=== PATIENT | male | born 1955 | race African-American/Black ===

== ENCOUNTER 2017-08-15 01:04 | Emergency (ER) | payer OTHER, BC ==
[~2017-08-15] VITALS: Ht 167.6 cm; Wt 77.1 kg
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
[2017-08-15 01:40] VITALS: BP 141/88
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
== END 2017-08-15 02:50 | disposition home or self-care (01) ==
LOC: ER 01:04
DX: S60.221A Contusion of right hand, initial encounter (principal); M54.2 Cervicalgia; V46.4XXA Person boarding or alighting a car injured in collision with other nonmotor vehicle, initial encounter; Y93.89 Activity, other specified; Y99.8 Other external cause status; Y92.488 Other paved roadways as the place of occurrence of the external cause
CPT/HCPCS: 72125; 73130; 99284-25